=== PATIENT | female | born 2000 | race Hispanic/Latino ===

== ENCOUNTER 2021-11-24 03:50 | Day surgery (SDC) | payer OTHER ==
[2021-11-24 04:26] VITALS: BMI 27.0
[2021-11-24] MEDS ORDERED: hydrALAZINE 20 MG/ML VIAL SLOW IVP PRN (05:09)
[2021-11-24] MEDS ORDERED: Acetaminophen 500 MG TAB PO SCH (05:15)
[2021-11-24 05:24] LABS: Bilirubin Neg (Negative); Blood, Urine Negative (Negative); Clarity Slightly Cloudy (Clear); Glucose, Urine (Dipstick) Normal (Negative); Ketone, Urine Negative (Negative); Leukocyte 25 (Negative); Nitrite Negative (Negative); Protein, Urine (Dipstick) Negative (Neg-Trace); Specific Gravity, Urine 1.005 (1.002-1.036); Urobilinogen Normal mg/dL (Less than 2); pH, Urine 6.5 (5.0-9.0)
[2021-11-24 05:30] LABS: Urine Culture Reflex No No
[2021-11-24 05:39] LABS: Bacteria/HPF Rare-Few HPF (None Seen); RBC/HPF 0-3 HPF (0-3); Squamous Epithelial 0-3 HPF (0-3); WBC/HPF 0-3 HPF (0-3)
[2021-11-24 05:43] LABS: Fetal Membranes Rupture No Membranes Rupture (No Rupture)
== END 2021-11-24 07:20 | disposition home or self-care (01) ==
LOC: CSHLD/OP 03:50
PROVIDERS: ATTEND Family Medicine
DX: O99.891 Other specified diseases and conditions complicating pregnancy (principal); R10.30 Lower abdominal pain, unspecified; M54.50 Low back pain, unspecified; N89.8 Other specified noninflammatory disorders of vagina; Z3A.38 38 weeks gestation of pregnancy; Z79.82 Long term (current) use of aspirin
CPT/HCPCS: 81001; 84112; 87086; 87480; 87510; 87660; 99285

== ENCOUNTER 2021-12-05 09:01 | Outpatient (CLI) | payer OTHER | END 2021-12-05 09:02 | disposition home or self-care (01) | LOC: CSHLAB 09:01 | PROVIDERS: ATTEND Family Medicine | DX: Z20.822 Contact with and (suspected) exposure to COVID-19 (principal) | CPT/HCPCS: 87811 ==

== ENCOUNTER 2021-12-06 19:30 | Inpatient (IN) | payer MEDICAID, OTHER ==
[2021-12-06 20:15] VITALS: BMI 27.1
[2021-12-06] MEDS ORDERED: Diphenoxylate HCl/Atropine Tablet PO PRN (20:17)
[2021-12-06] MEDS ORDERED: hydrALAZINE 20 MG/ML VIAL SLOW IVP PRN (20:17)
[2021-12-06] MEDS ORDERED: Promethazine HCl 25 MG/ML VIAL IM PRN (20:17)
[2021-12-06] MEDS ORDERED: Lidocaine 1% (PF) 30 ML VIAL SC PRN (20:17)
[2021-12-06] MEDS ORDERED: HYDROcodone/Acetaminophen 5/325 mg Tablet PO PRN (20:17)
[2021-12-06] MEDS ORDERED: Ibuprofen 800 MG TAB PO PRN (20:17)
[2021-12-06] MEDS ORDERED: Ondansetron PF 4 MG/2 ML Vial IVP PRN (20:17)
[2021-12-06] MEDS ORDERED: Butorphanol Tartrate 1 MG/ML VIAL SLOW IVP PRN (20:17)
[2021-12-06] MEDS ORDERED: Methylergonovine 0.2 MG/ML VIAL IM PRN (20:17)
[2021-12-06] MEDS ORDERED: Acetaminophen 500 MG TAB PO PRN (20:17)
[2021-12-06] MEDS ORDERED: Misoprostol 200 MCG TAB PR PRN (20:17)
[2021-12-06] MEDS ORDERED: Carboprost 250 MCG/ML AMP IM PRN (20:17)
[2021-12-06] MEDS ORDERED: NS w/ Oxytocin 30 units 500 ML IV SCH ×2 (20:30)
[2021-12-06] MEDS: Misoprostol 100 MCG TAB VAG SCH (21:06)
[2021-12-06 21:07] LABS: Hemoglobin 11.9 g/dL (12.0-15.5); Mean Corpuscular HGB CONC 33.3 g/dL (32.0-36.0); Mean Corpuscular Volume 89.9 fl (81.6-98.3); Mean Platelet Volume 9.9 fl (7.4-10.4); Platelet Count 262 10x3/uL (150-450); RBC Distribution Width 13.7 % (11.5-14.5); Red Blood Cell (RBC) Count 3.97 10x6/uL (3.90-5.03); White Blood Cell (WBC) Count 10.7 10x3/uL (3.5-10.5)
[2021-12-06] MEDS: Lactated Ringer's 1,000 ML IV SCH (21:11)
[2021-12-06 21:40] LABS: Hep B Surf Ag Non-Reactive S/CO (NonReactive); Syphilis Antibody Nonreactive (Nonreactive); Syphilis Antibody Index 0.02 S/CO (<1.00 Non-Reactive)
[2021-12-06 21:41] LABS: HBSAg Index 0.15 S/CO (0-0.99)
[2021-12-07] MEDS: Misoprostol 100 MCG TAB VAG SCH ×2 (00:20→07:42)
[2021-12-07] MEDS: Lactated Ringer's 1,000 ML IV SCH ×2 (07:42→17:35)
[2021-12-07] MEDS ORDERED: Bisacodyl 10 MG SUPP PR PRN (18:25)
[2021-12-07] MEDS ORDERED: NS w/ Oxytocin 30 units 500 ML IV SCH (18:25)
[2021-12-07] MEDS ORDERED: diphenhydrAMINE 25 MG CAP PO PRN (18:25)
[2021-12-07] MEDS ORDERED: Milk Of Magnesia 30 ML UDCUP PO PRN (18:25)
[2021-12-07] MEDS ORDERED: Benzocaine-Menthol 82.5 ML CAN TOP PRN (18:25)
[2021-12-07] MEDS ORDERED: Promethazine HCl 25 MG/ML VIAL IM PRN (18:25)
[2021-12-07] MEDS ORDERED: HYDROcodone/Acetaminophen 5/325 mg Tablet PO PRN ×2 (18:25)
[2021-12-07] MEDS ORDERED: hydrALAZINE 20 MG/ML VIAL SLOW IVP PRN (18:25)
[2021-12-07] MEDS ORDERED: Lanolin Ointment 7 GM TUBE TOP PRN (18:25)
[2021-12-07] MEDS ORDERED: Ondansetron PF 4 MG/2 ML Vial IVP PRN (18:25)
[2021-12-07] MEDS: Ibuprofen 800 MG TAB PO SCH (19:02)
[2021-12-07] MEDS: Docusate 100 MG CAP PO SCH (21:54)
[2021-12-08] MEDS: Ibuprofen 800 MG TAB PO SCH ×3 (04:17→22:17)
[2021-12-08] MEDS: Ferrous Sulfate 325 MG TAB PO SCH ×2 (09:10→17:08)
[2021-12-08] MEDS: Prenatal Vitamin 1 TAB PO SCH (09:17)
[2021-12-08] MEDS: Docusate 100 MG CAP PO SCH ×2 (09:17→22:00)
[2021-12-08] MEDS ORDERED: Boostrix 0.5 ML (Tdap) VIAL IM ONE (18:25)
[2021-12-09] MEDS: Ibuprofen 800 MG TAB PO SCH ×3 (05:39→15:44)
[2021-12-09] MEDS: Ferrous Sulfate 325 MG TAB PO SCH ×2 (07:13→16:41)
[2021-12-09] MEDS: Prenatal Vitamin 1 TAB PO SCH (08:15)
[2021-12-09] MEDS: Docusate 100 MG CAP PO SCH (08:16)
[2021-12-09 08:21] VITALS: BP 95/56; TEMP 98.5
== END 2021-12-09 19:05 | disposition home or self-care (01) | DRG 807 ==
LOC: CSHLD 19:38 → CSHPP 12-07 21:15
PROVIDERS: ADMIT Family Medicine; ATTEND Family Medicine
PROC: 10E0XZZ Delivery of Products of Conception, External Approach (ICD-10-PCS; principal; 2021-12-07)
PROC: 10907ZC Drainage of Amniotic Fluid, Therapeutic from Products of Conception, Via Natural or Artificial Opening (ICD-10-PCS; 2021-12-07)
PROC: 3E0P7VZ Introduction of Hormone into Female Reproductive, Via Natural or Artificial Opening (ICD-10-PCS; 2021-12-07)
PROC: 0W8NXZZ Division of Female Perineum, External Approach (ICD-10-PCS; 2021-12-07)
PROC: 0UQMXZZ Repair Vulva, External Approach (ICD-10-PCS; 2021-12-07)
DX: O70.0 First degree perineal laceration during delivery (principal); Z37.0 Single live birth; Z3A.39 39 weeks gestation of pregnancy
CPT/HCPCS: 85027; 86780; 86850; 86900; 86901; 87340; J0595; J2001; J2590; J7120

== ENCOUNTER 2023-03-01 12:55 | Emergency (ER) | payer MEDICAID, SELFPAY ==
[2023-03-01] MEDS ORDERED: Ibuprofen 200 MG TAB ONE (14:29)
[2023-03-01 14:45] LABS: Bilirubin Neg (Negative); Blood, Urine 25 (Negative); Glucose, Urine (Dipstick) Normal (Negative); Ketone, Urine 15 mg/dL (Negative); Leukocyte Negative (Negative); Nitrite Negative (Negative); Protein, Urine (Dipstick) 15 mg/dl (Neg-Trace); Urobilinogen Normal mg/dL (Less than 2)
[2023-03-01 14:47] LABS: Clarity Hazy (Clear)
[2023-03-01 15:00] LABS: Bacteria/HPF 2+ HPF (None Seen); CAUTI Indications for Culture Fever or rigors
[2023-03-01 15:03] LABS: Mucous/LPF 3+ LPF (<2+)
[2023-03-01 15:04] LABS: Urine Culture Reflex No No
[2023-03-01 15:09] LABS: SARS-CoV-2 NAA Rapid Test Not Detected (NotDetected)
== END 2023-03-01 15:40 | disposition home or self-care (01) ==
LOC: CSHERS 12:55
DX: J10.1 Influenza due to other identified influenza virus with other respiratory manifestations (principal); Z20.822 Contact with and (suspected) exposure to COVID-19
CPT/HCPCS: 71046; 81001; 87081; 87430